=== PATIENT | male | born 1990 | race Caucasian/White ===

== ENCOUNTER 2023-12-18 14:38 | Emergency (ER) | payer OTHER, SELFPAY ==
[2023-12-18 14:45] VITALS: BP 123/87; PULSE 92; RESP 18; TEMP 36.3; O2SAT 97; BMI 33.4
--- NOTE | 2023-12-18 15:30 | ED.DENTAL ---
HPI - Dental/Oral General Date Seen: 12/18/23 Chief complaint: Dental/Oral/Mouth Injury/Pain Stated complaint: tooth abscess Time Seen by Provider: 12/18/23 15:13 Source: patient Mode of arrival: ambulatory Limitations: no limitations History of Present Illness HPI Narrative: Patient is a 33-year-old male presenting for right-sided dental pain. He has been this pain for the past few days if he has a gets going worse. States he has poor dentition and does not have a dentist. Does not from last time is able to see dentist. Does not qualify for states insurance was not been able to see 1. Denies fevers, shortness of breath, dyspnea, chest, headache, vision changes, weakness, numbness, difficulty swallowing, change in voice. Does have pain when touching his tooth. Has noticed some swelling in the area. States he has had symptoms like this before in antibiotics helped. Location: Tooth # (30) Teeth map: 1. Related Data Previous Rx's ?Medication ?Instructions ?Recorded clindamycin HCl 150 mg capsule 450 mg (3 x 150 mg) PO TID 7 days 12/18/23 (Cleocin HCl) #63 caps Allergies Allergy/AdvReac Type Severity Reaction Status Date / Time amoxicillin Allergy Verified 12/18/23 14:47 cefaclor [From Ceclor] Allergy Verified 12/18/23 14:47 Review of Systems Status of ROS: Reports: 6 or more systems reviewed and unremarkable except as noted in History and below Exam Narrative: Exam Narrative: Const: Well-nourished, Well-developed, in mild distress Eyes: PERRL, no conjunctival injection, and symmetrical lids HENT: Atraumatic external nose and ears. Moist mucous membranes. Mild swelling noted to right-sided jaw. Uvula midline, no tonsillar exudates no swelling noted under the tongue. There is poor dentition noted with an obvious cavity seen on tooth #30. Mild erythema seen around the area. Neck: Symmetric, trachea midline, No thyromegaly. RESP: Unlabored respiratory effort. MSK:Extremities w/o deformity, Normal Active ROM Skin: Warm, Dry. No rashes or lesions. Neuro: Normal Muscle tone, No focal neurological deficits. Psych: Awake, Alert, & Oriented x3. Appropriate mood and affect. Const: Vital Signs, click to edit/add: Vital Signs - 24 hr 12/18/23 14:45 Temperature 97.3 F L Pulse Rate [Right Pulse Oximeter] 92 Respiratory Rate 18 Blood Pressure [Ri ght Upper Arm] 123/87 Pulse Oximetry 97 Oxygen Delivery Me thod Room Air Course Vital Signs Vital signs: Initial Vital Signs Temperature 97.3 F L 12/18/23 14:45 Temperature Source Temporal Artery Scan 12/18/23 14:45 Pulse Rate 92 12/18/23 14:45 Respiratory Rate 18 12/18/23 14:45 Blood Pressure 123/87 12/18/23 14:45 Blood Pressure Mean 99 12/18/23 14:45 Blood Pressure Position Sitting 12/18/23 14:45 Pulse Oximetry 97 12/18/23 14:45 Oxygen Delivery Method Room Air 12/18/23 14:45 Vital Signs Temperature 97.3 F L 12/18/23 14:45 Pulse Rate 92 12/18/23 14:45 Respiratory Rate 18 12/18/23 14:45 Blood Pressure 123/87 12/18/23 14:45 Pulse Oximetry 97 12/18/23 14:45 Oxygen Delivery Method Room Air 12/18/23 14:45 Temperature 97.3 F L 12/18/23 14:45 Pulse Rate 92 12/18/23 14:45 Respiratory Rate 18 12/18/23 14:45 Blood Pressure 123/87 12/18/23 14:45 Pulse Oximetry 97 12/18/23 14:45 Oxygen Delivery Method Room Air 12/18/23 14:45 MDM - Dental/Oral MDM Narrative Medical decision making narrative: Patient is a 33-year-old male presenting for tooth pain. Patient is not showing signs of peritonsillar abscess, Edwin angina, retropharyngeal abscess,Lemierre disease or any other concerning oral pharynx or deep neck space abscesses. Imaging is not necessary. Will start the patient on antibiotics. Discharge Plan Discharge Clinical Impression: Dental caries Patient Disposition: Home, Self-Care Condition: Stable Instructions: Tooth Extraction (DC) Additional Instructions: Take Tylenol and ibuprofen for pain. Return to emergency department for new or worsening symptoms including but not limited to difficulty breathing or change in your voice. There several options to get low-cost dental care including the [facility] dental [facility]. The [facility] also has list of low-cost dental care options on their website. Prescriptions: New clindamycin HCl [Cleocin HCl] 150 mg capsule 450 mg PO TID 7 Days Qty: 63 0RF Stand Alone Forms: [employer] system master Info Instructions
== END 2023-12-18 15:50 | disposition home or self-care (01) ==
LOC: ED 15:49
PROVIDERS: Emergency Provider Student in an Organized Health Care Education/Training Program
DX: K02.9 Dental caries, unspecified (principal)
CPT/HCPCS: 99282; 99283

== ENCOUNTER 2023-12-19 15:34 | Emergency (ER) | payer OTHER, SELFPAY ==
[2023-12-19 15:40] VITALS: BP 133/95; PULSE 90; RESP 18; TEMP 35.8; O2SAT 98; BMI 33.4
--- NOTE | 2023-12-19 16:19 | CRLHL7_ITS ---
For Patients: As a result of the Century Cures Act, medical imaging exams and procedure reports are released immediately into your electronic medical record. You may view this report before your referring provider. If you have questions, please contact your health care provider. INDICATION: Right-sided jaw swelling. TECHNIQUE: CT soft tissue of the neck was acquired with 128 cc Isovue 370 IV contrast. COMPARISON: None. FINDINGS: Skull base: Unremarkable. Pharynx/Larynx/Trachea: Epiglottis is normal. Airway is patent. Adjacent soft tissues are normal. Salivary glands: Unremarkable. Thyroid gland: Unremarkable. No significant nodules. Lymph nodes: No lymphadenopathy. Vessels: Unremarkable for age. Bones: Unremarkable for age. Misc: There is superficial subcutaneous inflammation in the right facial soft tissues. No deep tissue inflammation and no fluid collection to suggest abscess. A prominent 5 cm lipoma is in the posterior right neck subcutaneous tissues. Lung apices: Unremarkable. IMPRESSION: Right facial superficial soft tissue inflammation. No deep tissue inflammation and no abscess. Please note that all CT scans at this facility use dose modulation, iterative reconstruction, and/or weight-based dosing when appropriate to reduce radiation dose to as low as reasonably achievable. Dictated by Marcus Hillman MD @ 12/19/2023 5:20:36 PM (Electronically Signed)
--- NOTE | 2023-12-19 16:41 | ED_ITS ---
HPI - Dental/Oral General Date Seen: 12/19/23 Chief complaint: Dental/Oral/Mouth Injury/Pain Stated complaint: tooth abscess Time Seen by Provider: 12/19/23 15:39 Source: patient Mode of arrival: ambulatory Limitations: no limitations History of Present Illness HPI Narrative: Patient is a 33-year-old male presenting with right-sided jaw pain and swelling. He is concerned about a dental infection. She was seen here yesterday by myself in starting clindamycin but states the pain is getting worse the swelling is getting worse make it difficult for him to take the pills. Has not noticed any change in his voice. Does not having difficulty swallowing or breathing. Denies fevers or chills. States the main difference drinking today is today is the worsening swelling. The cavities on tooth number 30. Related Data Previous Rx's ?Medication ?Instructions ?Recorded clindamycin HCl 150 mg capsule 450 mg (3 x 150 mg) PO TID 7 days 12/18/23 (Cleocin HCl) #63 caps ketorolac 10 mg tablet 10 mg PO Q6H PRN pain #20 tabs 12/19/23 prednisone 20 mg tablet 40 mg (2 x 20 mg) PO DAILY #10 tabs 12/19/23 Allergies Allergy/AdvReac Type Severity Reaction Status Date / Time amoxicillin Allergy Verified 12/19/23 16:43 cefaclor [From Ceclor] Allergy Verified 12/19/23 16:43 Review of Systems Status of ROS: Reports: 6 or more systems reviewed and unremarkable except as noted in History and below PFSH PFSH Social History Non-prescribed substance use: denies use Exam Narrative: Exam Narrative: Const: Well-nourished, Well-developed, in mild distress Eyes: PERRL, no conjunctival injection, and symmetrical lids HENT: Atraumatic external nose and ears. Moist mucous membranes. Uvula midline, no tonsillar exudates or swelling, swelling noted to right drawn some mild erythema noticed around the dental milena on tooth number 30 is missing tooth number 32 and has a large cavity that is not bothering him on tooth number 17. Neck: Symmetric, trachea midline, No thyromegaly. CVS: RRR, No murmurs or gallops. Peripheral pulses 2+ and equal in all extremities RESP: Unlabored respiratory effort. Clear to auscultation bilaterally. GI: Nontender/Nondistended, No rebound or guarding. MSK:Extremities w/o deformity, Normal Active ROM Skin: Warm, Dry. No rashes or lesions. Neuro: Normal Muscle tone, No focal neurological deficits. Psych: Awake, Alert, & Oriented x3. Appropriate mood and affect. Const: Vital Signs, click to edit/add: Vital Signs - 24 hr 12/19/23 15:40 12/19/23 18:08 Temperature 96.5 F L 96.5 F L Pulse Rate [Pulse Oximeter] 90 90 Respiratory Rate 18 18 Blood Pressure [Ri ght Upper Arm] 133/95 H 133/95 H Pulse Oximetry 98 Oxygen Delivery Me thod Room Air Course Vital Signs Vital signs: Initial Vital Signs Temperature 96.5 F L 12/19/23 15:40 Temperature Source Temporal Artery Scan 12/19/23 15:40 Pulse Rate 90 12/19/23 15:40 Pulse Rhythm Regular 12/19/23 15:40 Respiratory Rate 18 12/19/23 15:40 Blood Pressure 133/95 H 12/19/23 15:40 Blood Pressure Mean 107 H 12/19/23 15:40 Blood Pressure Position Sitting 12/19/23 15:40 Pulse Oximetry 98 12/19/23 15:40 Oxygen Delivery Method Room Air 12/19/23 15:40 Vital Signs Temperature 96.5 F L 12/19/23 15:40 Pulse Rate 90 12/19/23 15:40 Respiratory Rate 18 12/19/23 15:40 Blood Pressure 133/95 H 12/19/23 15:40 Pulse Oximetry 98 12/19/23 15:40 Oxygen Delivery Method Room Air 12/19/23 15:40 Temperature 96.5 F L 12/19/23 18:08 Pulse Rate 90 12/19/23 18:08 Respiratory Rate 18 12/19/23 18:08 Blood Pressure 133/95 H 12/19/23 18:08 Pulse Oximetry 98 12/19/23 15:40 Oxygen Delivery Method Room Air 12/19/23 15:40 Medications Administered Medications: Discontinued Medications Generic Name Dose Route Start Last Admin Trade Name Freq PRN Reason Stop Dose Admin Ketorolac Tromethamine 15 mg 12/19/23 16:19 12/19/23 16:42 Ketorolac 15 Mg/Ml Inj IVP 12/19/23 16:20 15 mg ONCE ONE Administration MDM - Dental/Oral MDM Narrative Medical decision making narrative: Patient is a 33-year-old male presenting for right-sided jaw swelling. With increased swelling I do have some concern about abscess formation within the region mentioned. Will do a CT scan with IV contrast. Also do lab work including a BMP and CBC. BMP shows no concerning findings. Is CBC shows an elevated white blood cell count at 13.77. Likely infection is within his tooth. I will keep him on clindamycin. CT scan returned reviewed by myself and the radiologist shows no acute concerning abnormalities. There is inflammation within the superficial right facial soft tissue but no deep tissue inflammation or abscess. This is likely reactive. I will start him on steroids also. Is also given prescription for Toradol as that did help his pain. Will be discharged. I did inform him over a phone call about his high blood sugar and the need to see primary care to get that taken care of. Lab Data Labs: Lab Results 12/19/23 Range/Units 16:40 WBC 13.77 H (4.50-11.00) K/uL RBC 5.18 (4.30-5.90) m/uL Hgb 16.1 (13.5-17.5) gm/dL Hct 47.7 (37.0-53.0) % MCV 92 (80-100) fL MCH 31 (26-34) pg MCHC 34 (32-36) gm/dL RDW Coeff of Corky 11.8 (11.5-15.5) % Plt Count 254 (140-440) K/uL Neut % (Auto) 67.9 (42.0-72.0) % Lymph % (Auto) 22.5 (20-44) % [place] % (Auto) 7.8 (0.0-11.0) % Eos % (Auto) 0.8 (0.0-7.0) % Baso % (Auto) 0.1 (0.0-3.0) % Neut # (Auto) 9.30 H (1.7-7.0) K/uL Lymph # (Auto) 3.10 H (0.90-2.90) K/uL [place] # (Auto) 1.10 H (0.00-0.90) K/UL Eos # (Auto) 0.10 (0.00-0.50) K/uL Baso # (Auto) 0.00 (0.00-0.30) K/uL Abs Immat Gran (auto) 0.10 (0.00-0.30) K/uL Imm/Tot Granulo (auto) 0.9 % Sodium 137 (135-149) mmol/L Potassium 4.3 (3.6-5.1) mmol/L Chloride 104 (96-114) mmol/L Carbon Dioxide 26 (20-32) mmol/L Anion Gap 7 (7-15) mEq/L BUN 10 (5-24) mg/dL Creatinine 0.7 (0.5-1.5) mg/dL Estimated Creat Clear 171.25 Estimated GFR 123 ml/min Glucose 248 H (60-115) mg/dL Calcium 9.8 (8.4-10.6) mg/dL Imaging Data CT scan soft tissue neck: Attestation: I have reviewed the pertinent imaging results. Radiologist's impression: Right facial superficial soft tissue inflammation. No deep tissue inflammation and no abscess. Please note that all CT scans at this facility use dose modulation, iterative reconstruction, and/or weight-based dosing when appropriate to reduce radiation dose to as low as reasonably achievable. Dictated by Marcus Hillman MD @ 12/19/2023 5:20:36 PM Discharge Plan Discharge Clinical Impression: Dental caries Patient Disposition: Home, Self-Care Condition: Improved Instructions: Tooth Extraction (DC) Additional Instructions: Continue take the clindamycin. Also take the Toradol and prednisone. Return to emergency department for new or worsened symptoms. Do not take ibuprofen or other NSAIDs at the same time your taking the Toradol. Prescriptions: New prednisone 20 mg tablet 40 mg PO DAILY Qty: 10 0RF ketorolac 10 mg tablet 10 mg PO Q6H PRN (Reason: pain) Qty: 20 0RF Rx Instructions: maximum total duration of 5 days from all oral, intranasal, or parenteral formulations No Action clindamycin HCl [Cleocin HCl] 150 mg capsule 450 mg PO TID 7 Days Qty: 63 0RF Follow Up/Referrals: Provider,Not a Local [Primary Care Provider] - Stand Alone Forms: [employer] Info Instructions
[2023-12-19] MEDS: KETOROLAC 15 MG/ML inj IVP (16:42)
[2023-12-19 16:47] LABS: Basophils Percent Auto 0.1 % (0.0-3.0); Eosinophils Percent Auto 0.8 % (0.0-7.0); Hematocrit 47.7 % (37.0-53.0); Hemoglobin* 16.1 gm/dL (13.5-17.5); Immature Granulocytes Pct Auto 0.9 %; Lymphocytes Percent Auto 22.5 % (20-44); Mean Corpuscular HGB Conc 34 gm/dL (32-36); Mean Corpuscular Hemoglobin 31 pg (26-34); Mean Corpuscular Volume 92 fL (80-100); Monocytes Percent Auto 7.8 % (0.0-11.0); Neutrophils Percent Auto 67.9 % (42.0-72.0); Platelet Count* 254 K/uL (140-440); RDW Coefficient of Variation % 11.8 % (11.5-15.5); Red Blood Count 5.18 m/uL (4.30-5.90); White Blood Count* 13.77 K/uL (4.50-11.00)
[2023-12-19 16:52] LABS: Slide Review Reflex No
[2023-12-19 17:01] LABS: Chloride* 104 mmol/L (96-114); Potassium* 4.3 mmol/L (3.6-5.1); Sodium* 137 mmol/L (135-149)
[2023-12-19 17:04] LABS: Anion Gap 7 mEq/L (7-15); Carbon Dioxide* 26 mmol/L (20-32); Creatinine* 0.7 mg/dL (0.5-1.5); Est. Creatinine Clearance* 171.25; Estimated Glomerular Filt Rate 123 ml/min
[2023-12-19 17:05] LABS: Blood Urea Nitrogen* 10 mg/dL (5-24); Calcium* 9.8 mg/dL (8.4-10.6); Glucose* 248 mg/dL (60-115)
[2023-12-19 18:08] VITALS: BP 133/95; PULSE 90; RESP 18; TEMP 35.8
== END 2023-12-19 18:09 | disposition home or self-care (01) ==
PROVIDERS: Emergency Provider Student in an Organized Health Care Education/Training Program
DX: K02.9 Dental caries, unspecified (principal)
CPT/HCPCS: 36415; 70491; 80048; 85025; 96374; 99282; 99284; 99285; J1885; Q9967

== ENCOUNTER 2024-04-01 16:04 | Emergency (ER) | payer OTHER, SELFPAY ==
[2024-04-01 16:10] VITALS: BP 137/83; PULSE 111; RESP 16; TEMP 36.4; O2SAT 97; BMI 30.8
--- NOTE | 2024-04-01 16:15 | ED_ITS ---
HPI - General Adult General Chief complaint: Dental/Oral/Mouth Injury/Pain Stated complaint: Jaw/throat pain Time Seen by Provider: 04/01/24 16:06 History of Present Illness HPI narrative: Has had a tooth ache since Friday. Noticed some discharge last evening. Has been taking tylenol and ibuprofen. Dental insurance kicks in on April 04 so he was trying to nurse it along until then but is in too much pain now. Has hx of tooth abscesses . Used up his Toradol from last time yesterday. 33-year-old man presenting emergency department with complaint of tooth pain. Has had bad tooth and is pending dental insurance coverage at the beginning of April. Intends on making appointment when insurance comes through. Pain is just really escalated. Sensitive to most stimuli. Taking ibuprofen and acetaminophen. Had some ketorolac from prior. Did have some drainage from the tooth he thought yesterday evening. History of abscesses. No fever measured. Related Data Previous Rx's ?Medication ?Instructions ?Recorded ketorolac 10 mg tablet 10 mg PO Q6H PRN pain #20 tabs 12/19/23 clindamycin HCl 300 mg capsule 300 mg PO TID 8 days #24 caps 04/01/24 Allergies Allergy/AdvReac Type Severity Reaction Status Date / Time amoxicillin Allergy Verified 04/01/24 16:09 cefaclor (From Ceclor) Allergy Verified 04/01/24 16:09 Review of Systems Status of ROS: Reports: 6 or more systems reviewed and unremarkable except as noted in History and below PFSH PFS Social History Smoking Status: Smoker, status unknown Do you use any of these nicotine containing products: None Second hand tobacco smoke exposure: No How often do you have a drink containing alcohol: never AUDIT-C Alcohol total score: 0 Non-prescribed substance use: marijuana (any form) service: No Exam Narrative: Exam Narrative: Pleasant. NAD. Bearded. Seems a little uncomfortable though. Skin is warm and dry. Is sore to palpation along the left mandible posteriorly. No cervical lymphadenopathy. Neck is supple. Oropharyngeal exam couple areas of decay. The farthest most left tooth appears to be the 1 in question. Large central erosion decay. Const: Vital Signs, click to edit/add: Vital Signs - 24 hr 04/01/24 16:10 Temperature 97.5 F L Pulse Rate [Pulse Oximeter] 111 H Respiratory Rate 16 [facility] 137/83 Pulse Oximetry 97 Oxygen Delivery Me thod Room Air Documenting provider has reviewed patient's vital signs: yes Course Vital Signs Vital signs: Initial Vital Signs Temperature 97.5 F L 04/01/24 16:10 Temperature Source Temporal Artery Scan 04/01/24 16:10 Pulse Rate 111 H 04/01/24 16:10 Pulse Rhythm Regular 04/01/24 16:10 Pulse Strength 3+ Normal 04/01/24 16:10 Respiratory Rate 16 04/01/24 16:10 Blood Pressure 137/83 04/01/24 16:10 Blood Pressure Mean 101 04/01/24 16:10 Blood Pressure Position Sitting 04/01/24 16:10 Pulse Oximetry 97 04/01/24 16:10 Oxygen Delivery Method Room Air 04/01/24 16:10 Vital Signs Temperature 97.5 F L 04/01/24 16:10 Pulse Rate 111 H 04/01/24 16:10 Respiratory Rate 16 04/01/24 16:10 Blood Pressure 137/83 04/01/24 16:10 Pulse Oximetry 97 04/01/24 16:10 Oxygen Delivery Method Room Air 04/01/24 16:10 Temperature 97.5 F L 04/01/24 16:10 Pulse Rate 111 H 04/01/24 16:10 Respiratory Rate 16 04/01/24 16:10 Blood Pressure 137/83 04/01/24 16:10 Pulse Oximetry 97 04/01/24 16:10 Oxygen Delivery Method Room Air 04/01/24 16:10 Medications Administered Medications: Discontinued Medications Generic Name Dose Route Start Last Admin Trade Name Freq PRN Reason Stop Dose Admin Bupivacaine HCl 5 ml 04/01/24 16:22 04/01/24 16:38 Bupivacaine 0.25% 30 Ml INJECTION 04/01/24 16:23 5 ml ONCE ONE Administration Clindamycin HCl 300 mg 04/01/24 16:53 04/01/24 17:12 Clindamycin 150 Mg Capsule PO 04/01/24 16:54 300 mg ONCE ONE Administration Medical Decision Making MDM Narrative Medical decision making narrative: I would offer immediate and temporary pain relief with dental block. Does not like needles but is willing to proceed. Return with bupivacaine to place a inferior alveolar block. Injected 1 0.5 mL on the left. On reassessment while still present, pain is markedly reduced. Did offer a buccal block yet but he would prefer not. Will be providing pain medicine and antibiotic. See patient discharge plan for further discussion Take this list of Dental Clinic options were you might inquire once your dental insurance kicks in in a few days. [employer] products are available [id number] for example at [employer]. One of these is a packing that you could place into this tooth that might be helpful. Can continue with ibuprofen up to 800 mg per dose. Acetaminophen up to 1000 mg per dose. Remember that each tablet of Mcneal contains 325 mg of acetaminophen. Keep working on smoking cessation partly as it is germane to the reason for your visit. Prescribing clindamycin and Mcneal from [facility] (no clindamycin in [facility] and so will give you a dose here and send in remainder in prescription to your pharmacy) Medical Records Medical records reviewed: Yes I reviewed the patient's medical records Discharge Plan Discharge Clinical Impression: Dental caries, Pain, dental Patient Disposition: Home, Self-Care Condition: Improved Additional Instructions: Take this list of Dental Clinic options were you might inquire once your dental insurance kicks in in a few days. [employer] products are available [id number] for example at [employer]. One of these is a packing that you could place into this tooth that might be helpful. Can continue with ibuprofen up to 800 mg per dose. Acetaminophen up to 1000 mg per dose. Remember that each tablet of Mcneal contains 325 mg of acetaminophen. Keep working on smoking cessation partly as it is germane to the reason for your visit. Prescribing clindamycin and Mcneal from [facility] (no clindamycin in [facility] and so will give you a dose here and send in remainder in prescription to your pharmacy) Prescriptions: New clindamycin HCl 300 mg capsule 300 mg PO TID 8 Days Qty: 24 0RF No Action ketorolac 10 mg tablet 10 mg PO Q6H PRN (Reason: pain) Qty: 20 0RF Rx Instructions: maximum total duration of 5 days from all oral, intranasal, or parenteral formulations Follow Up/Referrals: Provider,Not a Local [Primary Care Provider] - Stand Alone [facility]
[2024-04-01] MEDS: BUPIVACAINE 0.25% 30 ML 5 ML INJECTION (16:38)
[2024-04-01] MEDS: CLINDAMYCIN 150 MG CAPSULE 300 MG PO (17:12)
== END 2024-04-01 17:21 | disposition home or self-care (01) ==
PROVIDERS: Emergency Provider Family Medicine
DX: K02.9 Dental caries, unspecified (principal)
CPT/HCPCS: 99283; 99284; A9270; J0665